=== PATIENT | male | born 1975 | race Caucasian/White ===

== ENCOUNTER 2017-09-06 14:22 | Emergency (ER) | payer OTHER ==
[~2017-09-06] VITALS: Ht 185.4 cm; Wt 148.1 kg
[~2017-09-06 14:22] MED LIST: ACETAMINOPHEN1 EAC4 PO; ASPIR 8181 M1 PO; AUGMENTIN875 MG PO; BACTRIM,SEPT1 TABLET PO; CIPRO750 MG PO; CITALOPRAM HBR20 MG PO; CLEOCIN300 MG PO; COUMADIN2.5 MG PO; COUMADIN5 MG PO; COUMADIN7.5 MG PO; DILAUDID2 MG PO; ENDOCET 5-3251 EACH PO; HYDROCODON-ACE1 EAC7 PO; LORAZEPAM0.5 MG PO; LOVENOX150 MG/1 M SC; NOHOMEMEDS; NORCO 5/3251 TABLET PO; PANTOPRAZOLE SO40 MG PO; PERCOCET 5/31 TABLET PO; Percocet 5/325,Endoc PO; Ultram PO; XANAX1 MG PO; XARELTO1 EACH PO; XARELTO15 MG PO; XARELTO20 MG PO; ZOFRAN4 MG PO; [UNRECOGNIZED DRUG - REMARK]; [UNRECOGNIZED DRUG - REMARK]
[2017-09-06 15:54] LABS: HEMATOCRIT 48.9 % (38.0-50.0); HEMOGLOBIN 17.1 G/DL (12.5-16.6); MCH 31.7 PG (29.0-34.0); MCV 90.6 FL (86-99); RBC DIS.WIDTH-CV 13.2 % (11.8-14.6); RBC DIS.WIDTH-SD 43.8 % (39-53); WHITE BLOOD COUNT 10.2 K/uL (4.1-10.2)
[2017-09-06 16:01] LABS: CHLORIDE 107 mEq/L (99-109); POTASSIUM 4.2 mEq/L (3.7-5.4); SODIUM 139 mEq/L (136-147)
[2017-09-06 16:03] LABS: GLUCOSE 92 mg/dL (70-99)
[2017-09-06 16:07] LABS: CREATININE 0.8 mg/dL (0.6-1.3); GFR ESTIMATE (CALCULATED) > 59 mL/min/ (58.99-99999); UREA NITROGEN (BUN) 9 mg/dL (9-23)
[2017-09-06 16:39] LABS: PTT 20.5 SEC (25-37)
[2017-09-06] MEDS ORDERED: LASIX20 MG PO (16:58)
[2017-09-06] MEDS ORDERED: ULTRAM50 MG PO (16:59)
[2017-09-06 17:00] LABS: PLAT.SUFFICIENCY DECREASED; PLATELET COUNT 67 K/uL (156-360)
[2017-09-06 17:38] VITALS: BP 142/81
== END 2017-09-06 17:39 | disposition home or self-care (01) ==
LOC: EME 14:22
PROVIDERS: Emergency Medicine
DX: R60.0 Localized edema (principal); D69.6 Thrombocytopenia, unspecified; Z86.711 Personal history of pulmonary embolism; F17.200 Nicotine dependence, unspecified, uncomplicated; F41.9 Anxiety disorder, unspecified; Z88.0 Allergy status to penicillin
CPT/HCPCS: 80048; 85027; 85610; 85730; 93005; 93970; 99281; 99285

== ENCOUNTER 2018-02-03 04:11 | Inpatient (IN) | payer OTHER ==
[~2018-02-03] VITALS: Ht 185.4 cm; Wt 148.1 kg
[~2018-02-03 04:11] MED LIST changes: +LASIX20 MG PO; +ULTRAM50 MG PO
[2018-02-03 05:24] LABS: LIPASE 12 U/L (1.0-51.0)
[2018-02-03 05:33] LABS: TROP-I INTERPRETATION NEGATIVE; TROPONIN-I < 0.01 ng/mL (0.0-0.30)
[2018-02-03 07:04] LABS: HEMATOCRIT 51.3 % (38.0-50.0); HEMOGLOBIN 18.3 G/DL (12.5-16.6); MCH 31.8 PG (29.0-34.0); MCHC 35.7 G/DL (30.0-36.0); MCV 89.2 FL (86-99); PLATELET COUNT 198 K/uL (156-360); RBC DIS.WIDTH-CV 13.3 % (11.8-14.6); RBC DIS.WIDTH-SD 43.2 % (39-53); RED BLOOD COUNT 5.75 M/uL (4.00-5.50); WHITE BLOOD COUNT 13.8 K/uL (4.1-10.2)
[2018-02-03 07:22] LABS: ALBUMIN 4.5 G/DL (3.2-4.8); ALKALINE PHOSPHATASE 72 IU/L (3-129); ALT (GPT) 54 IU/L (3-49); AST (GOT) 47 IU/L (2-34); CHLORIDE 102 MEQ/L (99-109); GFR ESTIMATE (CALCULATED) > 59 mL/min/ (58.99-99999); GLUCOSE 114 mg/dL (70-99); POTASSIUM 4.4 MEQ/L (3.7-5.4); SODIUM 136 MEQ/L (136-147); TOTAL PROTEIN 8.1 G/DL (6.4-8.3); UREA NITROGEN (BUN) 11 mg/dL (9-23)
[2018-02-03 09:58] VITALS: BP 137/83
[2018-02-03 16:11] VITALS: BP 126/72
[2018-02-03 23:03] VITALS: BP 139/87
[2018-02-04 03:20] VITALS: BP 146/90
[2018-02-04 06:58] LABS: HEMATOCRIT 48.9 % (38.0-50.0); HEMOGLOBIN 16.8 G/DL (12.5-16.6); MCH 30.8 PG (29.0-34.0); MCHC 34.4 G/DL (30.0-36.0); MCV 89.7 FL (86-99); PLATELET COUNT 148 K/uL (156-360); RBC DIS.WIDTH-SD 42.5 % (39-53); RED BLOOD COUNT 5.45 M/uL (4.00-5.50); WHITE BLOOD COUNT 6.3 K/uL (4.1-10.2)
[2018-02-04 07:25] LABS: CHLORIDE 106 MEQ/L (99-109); CREATININE 0.8 MG/DL (0.6-1.3); GFR ESTIMATE (CALCULATED) > 59 mL/min/ (58.99-99999); GLUCOSE 82 mg/dL (70-99); POTASSIUM 4.2 MEQ/L (3.7-5.4); SODIUM 139 MEQ/L (136-147); UREA NITROGEN (BUN) 12 mg/dL (9-23)
[2018-02-04 08:43] VITALS: BP 133/68
[2018-02-04 12:36] VITALS: BP 159/83
[2018-02-04 15:55] VITALS: BP 144/82
[2018-02-04 20:01] VITALS: BP 155/86
[2018-02-05 00:37] VITALS: BP 122/68
[2018-02-05 07:35] VITALS: BP 144/77
[2018-02-05 15:17] VITALS: BP 136/77
[2018-02-06 00:18] VITALS: BP 146/78
[2018-02-06 07:27] VITALS: BP 120/81
[2018-02-06] MEDS ORDERED: METRONIDAZOLE500 MG PO (09:00)
[2018-02-06] MEDS ORDERED: BENTYL10 MG PO (09:00)
[2018-02-06] MEDS ORDERED: CIPROFLOXACIN500 M1 PO (09:00)
== END 2018-02-06 10:20 | disposition home or self-care (01) | DRG 389 ==
LOC: EME → EDBD 04:11 → EME 04:11 → 2EAST 07:40 → EDOF 07:40 → ENRESERV 08:04 → CANRESERV 08:04 → 2EAST 09:24
PROVIDERS: Emergency Medicine; Hospitalist
DX: K56.600 Partial intestinal obstruction, unspecified as to cause (principal); K52.9 Noninfective gastroenteritis and colitis, unspecified; E66.01 Morbid (severe) obesity due to excess calories; Z68.41 Body mass index [BMI] 40.0-44.9, adult; G47.30 Sleep apnea, unspecified; Z86.711 Personal history of pulmonary embolism; E11.9 Type 2 diabetes mellitus without complications; I10 Essential (primary) hypertension; F17.210 Nicotine dependence, cigarettes, uncomplicated; D75.1 Secondary polycythemia; Z98.0 Intestinal bypass and anastomosis status; Z90.49 Acquired absence of other specified parts of digestive tract; Z79.01 Long term (current) use of anticoagulants; E86.0 Dehydration
CPT/HCPCS: 71045; 74018; 74177; 80048; 80053; 81003; 82948; 83605; 83690; 84484; 85027; 86850; 86900; 86901; 87040; 93005; 99281; 99285; J0744; J1644; J2270; J2405; J3010; J7030; S0030